=== PATIENT | male | born 1995 | race Caucasian/White ===

== ENCOUNTER 2017-02-14 17:01 | Emergency (ER) | payer OTHER ==
[2017-02-14 17:47] VITALS: BP 112/63
--- NOTE | 2017-02-14 19:41 | UC ---
[facility] H[facility] - HPI Summary HPI Summary: 21 y/o male presents to the urgent care c/o dental pain in his left upper jaw for the past 2 weeks. He doesn't have any dentist. He has been taking ibuprofen and Tylenol to alleviate pain, but now it looks infected with mild swelling in his gum. Pt states he doen't have a dentist and he has some caries that are getting worse. Pt denies fever, SOB, abdominal pain, chest pain, N/V/ D. - History of Current Complaint Chief Complaint: UCDentalProblem Stated Complaint: DENTAL Time Seen by Provider: 02/14/17 19:36 Hx Obtained From: Patient Onset/Duration: Gradual Onset, Lasting Weeks - 2 weeks, Still Present Severity: Moderate Pain Intensity: 8 Pain Scale Used: 0-10 Numeric Aggravating Factor(s): Chewing Alleviating Factor(s): OTC Meds - Allergies/Home Medications Allergies/Adverse Reactions: Allergies Allergy/AdvReac Type Severity Reaction Status Date / Time Haloperidol [From Haldol] Allergy Swelling Verified 02/14/17 17:47 PMH/Surg Hx/FS Hx/Imm Hx Previously Healthy: Yes - Pt denies PMHX - Surgical History Surgical History: None - Family History Known Family History: Positive: Cardiac Disease, Hypertension - Social History Occupation: Employed Full-time Lives: With Family Alcohol Use: None Substance Use Type: None Smoking Status (MU): Never Smoked Tobacco Type: Smokeless Tobacco - Immunization History Vaccination Up to Date: Yes Review of Systems Constitutional: Negative Skin: Negative Eyes: Negative ENT: Dental Pain Respiratory: Negative Cardiovascular: Negative Gastrointestinal: Negative Genitourinary: Negative Motor: Negative Neurovascular: Negative Musculoskeletal: Negative Neurological: Headache - mild Psychological: Negative Is Patient Immunocompromised?: No All Other Systems Reviewed And Are Negative: Yes Physical Exam Triage Information Reviewed: Yes Appearance: Well-Appearing, No Pain Distress, Well-Nourished Vital Signs: Initial Vital Signs Temp 98.3 F 02/14/17 17:43 Pulse 65 02/14/17 17:43 Resp 16 02/14/17 17:43 BP 112/63 02/14/17 17:43 Pulse Ox 100 02/14/17 17:43 Vital Signs Reviewed: Yes Eyes: Positive: Conjunctiva Clear - PERRLA, EOMI, ENT: Positive: Normal ENT inspection, Hearing grossly normal, Pharynx normal, TMs normal - B/L exteranl ear canals clear,. Negative: Tonsillar swelling, Tonsillar exudate, Trismus Dental: Positive: Gross Decay/Caries @ - tooth #11 and 12 and 18,19,20, Abscess @ - gingival swelling and erythema, tender to percussion. involves tissue surrounding the teeth #11 and 12., Cervical Lymphadenopathy - anterior Neck: Positive: Supple Respiratory: Positive: Chest non-tender, Lungs clear, Normal breath sounds, No respiratory distress Cardiovascular: Positive: RRR, No Murmur, Pulses Normal, Brisk Capillary Refill Abdomen Description: Positive: Nontender, No Organomegaly, Soft. Negative: CVA Tenderness (R), CVA Tenderness (L) Bowel Sounds: Positive: Present Musculoskeletal: Positive: Strength Intact, ROM Intact, No Edema Neurological Exam: Normal Psychological Exam: Normal Skin Exam: Normal Dental Complaint Course/Dx - Course Course Of Treatment: 21 y/o male presents to the urgent care c/o dental pain in his left upper jaw for the past 2 weeks. He doesn't have any dentist. He has been taking ibuprofen and Tylenol to alleviate pain, but now it looks infected with mild swelling in his gum. Pt states he doen't have a dentist and he has some caries that are getting worse. Pt denies fever,trismus, SOB, abdominal pain, chest pain, N/V/D. Hx obtained. Pt with dental abscess above tooth #11 and 12 and multiple caries on examination. Pt given viscous Lidocaine at the clinic to alleviate symptoms and first dose of Amoxicillin PO and Naproxen PO, pharmacy closed at this time. Pt Rx same medications. Pt strongly advised to f/ u with Dentist as soon as possible further evaluation and treatment, Denstist list provided. Pt understood and agreed with plan of care. Left the clinic ambulating. - Differential Dx/Diagnosis Differential Diagnosis/Dx: Dental Abscess, Dental Caries, Gingivitis, Peritonsillar Abcess, Pharyngitis, Tonsillitis Provider Diagnoses: 1- Dental abcess on the left upper jaw. 2- Dental caries Discharge - Discharge Plan Condition: Stable Disposition: HOME Prescriptions: Amoxicillin PO (*) [Amoxicillin 500 MG CAP*] 500 mg PO TID #29 cap Naproxen TAB* [Naprosyn 250 mg TAB*] 500 mg PO Q8H PRN #30 tab PRN Reason: Pain Patient Education Materials: Dental Abscess (ED) Referrals: [facility]IAN REFERRAL [Outside] - 2 Days No Primary Care Phys,NOPCP [Primary Care Provider] - Additional Instructions: 1-Please take full course of antibiotic to avoid resistance. 2- Take Naproxen as instructed after meals to alleviate pain and swelling. 3- F/u with your Dentist or Dental List provided as soon as possible for further treatment. 4- If symptoms do not improve or worsen please return to the urgent care or f/u with your PCP for further evaluation and treatment
[2017-02-14] MEDS ORDERED: Naproxen TAB* 250 MG PO ONE (19:49)
[2017-02-14] MEDS ORDERED: Lidocaine 2% VISCOUS* 15 ML UDC SWISH SPIT ONE (19:49)
[2017-02-14] MEDS ORDERED: Amoxicillin PO (*) 500 MG CAP PO ONE (19:50)
== END 2017-02-14 20:13 | disposition home or self-care (01) ==
LOC: UCCORT 17:01
DX: K04.7 Periapical abscess without sinus (principal); K02.9 Dental caries, unspecified; Z88.8 Allergy status to other drugs, medicaments and biological substances
CPT/HCPCS: 99212; A9270-GY; G0463